=== PATIENT | female | born 1975 | race Two or more races ===

== ENCOUNTER 2018-12-14 19:07 | Emergency (ER) | payer OTHER ==
[2018-12-14] MEDS ORDERED: NORMAL SALINE 1000 ML 1,000 ML IV ONE (19:36)
--- NOTE | 2018-12-14 19:38 | ER Document Report ---
ED Medical Screen (RME) - General Chief Complaint: Abdominal Pain Stated Complaint: ABDOMINAL PAIN Time Seen by Provider: 12/14/18 19:36 Mode of Arrival: Wheelchair Information source: Patient Notes: Patient presents complaining of flank pain or abdominal pain that radiates to the suprapubic area for the past 6 days. Patient does report fever at home was 101 today. Patient reports nausea several days ago but none since then. Patient denies any significant medical history. Previous surgical history includes and tubal ligation. Patient does appear somewhat jaundiced in triage. I have greeted and performed a rapid initial assessment of this patient. A comprehensive ED assessment and evaluation of the patient, analysis of test results and completion of the medical decision making process will be conducted by additional ED providers. - Related Data Allergies/Adverse Reactions: hydrocodone Allergy (Verified 12/14/18 19:31) Past Medical History - Social History Frequency of alcohol use: None Drug Abuse: None Renal/ Medical History: Denies: Hx Peritoneal Dialysis Past Surgical History: Reports: Hx Section - x4, Hx Tubal Ligation Physical Exam - Vital signs Vitals: Temp Pulse Resp BP Pulse Ox 99.1 F 113 H 18 107/62 95 12/14/18 19:09 12/14/18 19:09 12/14/18 19:09 12/14/18 19:09 12/14/18 19:09 - Abdominal Inspection: Morbidly Obese Tenderness: Tender - Upper abdominal pain - Skin Skin Color: Jaundiced Course - Vital Signs Vital signs: Temp Pulse Resp BP Pulse Ox 99.1 F 113 H 18 107/62 95 12/14/18 19:09 12/14/18 19:09 12/14/18 19:09 12/14/18 19:09 12/14/18 19:09
[2018-12-14 20:53] LABS: APPEARANCE,URINE TURBID; BILIRUBIN,URINE NEGATIVE (NEGATIVE); GLUCOSE, URINE NEGATIVE (NEGATIVE); KETONES,URINE NEGATIVE (NEGATIVE); LEUKOCYTE ESTERASE,URINE MODERATE (NEGATIVE); NITRITE,URINE POSITIVE (NEGATIVE); PROTEIN,URINE >=500 mg/dL (NEGATIVE); URINE SPECIFIC GRAVITY 1.018
[2018-12-14 20:57] LABS: COLOR,URINE YELLOW
[2018-12-14 21:08] LABS: ABSOLUTE BASOPHILS # (AUTO) 0.1 10^3/uL (0.0-0.2); ABSOLUTE LYMPHOCYTES (AUTO) 0.7 10^3/uL (0.5-4.7); ABSOLUTE MONOCYTES (AUTO) 0.6 10^3/uL (0.1-1.4); ABSOLUTE NEUT (AUTO) 11.8 10^3/uL (1.7-8.2); BASOPHILS % (AUTO) 1.1 % (0-2); EOSINOPHILS % (AUTO) 0.1 % (0-6); HEMATOCRIT 29.2 % (36.0-47.0); HEMOGLOBIN 10.1 g/dL (12.0-15.5); LYMPHOCYTES % (AUTO) 5.1 % (13-45); MEAN CORPUSCULAR HEMOGLOBIN 34.2 pg (27.0-33.4); MEAN CORPUSCULAR HGB CONC 34.7 g/dL (32.0-36.0); MEAN CORPUSCULAR VOLUME 99 fl (80-97); MONOCYTES % (AUTO) 4.8 % (3-13); PLATELET COUNT 250 10^3/uL (150-450); RED BLOOD COUNT 2.96 10^6/uL (3.72-5.28); RED CELL DISTRIBUTION WIDTH 14.4 % (11.5-14.0); SEGMENTED NEUTROPHILS % (AUTO) 88.9 % (42-78); TOTAL CELLS COUNTED % (AUTO) 100 %; WHITE BLOOD COUNT 13.3 10^3/uL (4.0-10.5)
[2018-12-14 21:23] LABS: ALANINE AMINOTRANSFERASE 132 U/L (9-52); ALBUMIN 3.7 g/dL (3.5-5.0); ALKALINE PHOSPHATASE 260 U/L (38-126); ANION GAP 12 (5-19); ASPARTATE AMINO TRANSFERASE 98 U/L (14-36); BILIRUBIN,DIRECT 0.8 mg/dL (0.0-0.4); BILIRUBIN,TOTAL 1.3 mg/dL (0.2-1.3); BLOOD UREA NITROGEN 15 mg/dL (7-20); CALCIUM 9.4 mg/dL (8.4-10.2); CARBON DIOXIDE 25 mmol/L (22-30); CHLORIDE 102 mmol/L (98-107); GLUCOSE 96 mg/dL (75-110); LIPASE 21.4 U/L (23-300); POTASSIUM 3.4 mmol/L (3.6-5.0); SODIUM 139.4 mmol/L (137-145); TOTAL PROTEIN 7.1 g/dL (6.3-8.2)
[2018-12-14] MEDS ORDERED: ONDANSETRON HCL INJ/PF 4 MG/2 ML SDV IV ONE (21:55)
[2018-12-14] MEDS ORDERED: HYDROMORPHONE HCL INJ/PF 2 MG/ML AMPULE IV ONE (21:55)
[2018-12-14] MEDS ORDERED: CEFTRIAXONE 1 GM/D5W RTU 1 GM/50 ML RTUPB IV ONE (21:57)
--- NOTE | 2018-12-14 21:57 | ER Document Report ---
ED GI/ - General Chief Complaint: Abdominal Pain Stated Complaint: ABDOMINAL PAIN Time Seen by Provider: 12/14/18 19:36 Primary Care Provider: KHADIJAH LIVINGSTON MD [ACTIVE STAFF] - Follow up tomorrow Mode of Arrival: Wheelchair Notes: Patient is a 43-year-old female that comes to the emergency department for chief complaint of 6 days of worsening pain in her flank that radiates around to her abdomen and suprapubic area (she points) for the past 6 days. She states she has developed fever/chills, fever of 101 at home today. She reports nausea, denies vomiting. Denies history of kidney stones, however she does states she has had kidney infections before and this feels the same. Past medical history also includes , tubal ligation. No other reported medical history. - Related Data Allergies/Adverse Reactions: hydrocodone Allergy (Verified 12/14/18 19:31) Past Medical History - General Information source: Patient - Social History Smoking Status: Current Every Day Smoker Frequency of alcohol use: None Drug Abuse: None Lives with: Family Family History: Reviewed & Not Pertinent Patient has suicidal ideation: No Patient has homicidal ideation: No Renal/ Medical History: Denies: Hx Peritoneal Dialysis Past Surgical History: Reports: Hx Section - x4, Hx Tubal Ligation - Immunizations Hx Diphtheria, Pertussis, Tetanus Vaccination: Yes Review of Systems - Review of Systems Constitutional: No symptoms reported EENT: No symptoms reported Cardiovascular: No symptoms reported Respiratory: No symptoms reported Gastrointestinal: See HPI Genitourinary: See HPI Female Genitourinary: No symptoms reported Musculoskeletal: No symptoms reported Skin: No symptoms reported Hematologic/Lymphatic: No symptoms reported Neurological/Psychological: No symptoms reported Physical Exam - Vital signs Vitals: Temp Pulse Resp BP Pulse Ox 99.1 F 113 H 18 107/62 95 12/14/18 19:09 12/14/18 19:09 12/14/18 19:09 12/14/18 19:09 12/14/18 19:09 - Notes Notes: GENERAL: Alert, responsive, appears to be in pain HEAD: Normocephalic, atraumatic. EYES: Pupils equal, round, and reactive to light. Extraocular movements intact. ENT: Oral mucosa moist, tongue midline. Oropharynx unremarkable. Airway patent. Nares patent, no nasal septal hematoma, TM's intact. NECK: Full range of motion. Supple. Trachea midline. LUNGS: Clear to auscultation bilaterally, no wheezes, rales, or rhonchi. No respiratory distress. HEART: Borderline tachycardic, normal rhythm, no murmur. ABDOMEN: Mild generalized tenderness, nonspecific, no guarding, no rigidity GENITOURINARY: Deferred EXTREMITIES: Moves all 4 extremities spontaneously. No edema, normal radial and dorsalis pedis pulses bilaterally. No cyanosis. BACK: no cervical, thoracic, lumbar midline tenderness. No saddle anesthesia, normal distal neurovascular exam. There is some CVA tenderness bilaterally, worse on the right. NEUROLOGICAL: Alert and oriented x3. Normal speech. [cranial nerves II through XII grossly intact]. SKIN: Warm, dry, normal turgor. No rashes or lesions noted. Course - Re-evaluation Re-evalutation: On initial evaluation patient is very uncomfortable, she has bilateral CVA tenderness, she has some generalized abdominal tenderness without guarding of the abdomen. No fever here. After medication patient states she feels "high", but much better. She is still alert and responsive. She no longer appears to be in distress. CBC shows leukocytosis, some anemia, no bandemia. Chemistry shows creatinine at 1.7. I discussed this with patient, she was given additional IV fluids, she states she has never heard that she has poor renal functioning or chronic kidney disease. Ultrasound does not show hydronephrosis on the right side suggesting obstruction. Patient having slowly worsening symptoms consistent with pyelonephritis, no acute onset suggesting ureterolithiasis. She does have a urinary tract infection, culture was placed. Given antibiotics here. Ultrasound does show possible mass, possibly ovarian, otherwise unremarkable. Discussed with patient, she is requesting to leave. I discussed her labs in detail including her creatinine, her infection, my concerns about her ultrasound . She did agree to have an ultrasound performed, this was performed, shows a likely right ovarian mass which is very large. I called and spoke with Dr. Livingston, OUTSIDE SALES ACCOUNT MANAGER warehouse operations associate, she states that she does not suspect torsion because of the very large size, patient does not have any vomiting, she is very comfortable now. She recommends close OUTSIDE SALES ACCOUNT MANAGER follow-up in the office for this to be surgically taken care of. Patient states that she will absolutely perform this follow-up, she requests now to go home with her family, she states that she will have things rechecked, she will take her medications, and she will return if she worsens in any way. Blood pressure did become borderline low after pain medication but this is improved, she denies dizziness, ambulates without difficulty. She is also very small. She is not tachycardic or symptomatic, she has not had a fever here, as a result I do not suspect sepsis. She was however given strict return precautions and she states that she will return if she worsens in any way. - Vital Signs Vital signs: Temp Pulse Resp BP Pulse Ox 98.6 F 98 20 100/68 99 12/15/18 04:01 12/15/18 04:01 12/15/18 04:01 12/15/18 04:01 12/15/18 04:01 - Laboratory Result Diagrams: 12/14/18 20:45 12/14/18 20:45 Laboratory results interpreted by me: 12/14/18 12/14/18 12/14/18 19:50 20:45 20:45 WBC 13.3 H RBC 2.96 L Hgb 10.1 L Hct 29.2 L MCV 99 H MCH 34.2 H RDW 14.4 H Seg Neutrophils % 88.9 H Lymphocytes % 5.1 L Absolute Neutrophils 11.8 H Potassium 3.4 L Creatinine 1.71 H Est GFR ( Amer) 40 L Est GFR (Non-Af Amer) 33 L Direct Bilirubin 0.8 H AST 98 H ALT 132 H Alkaline Phosphatase 260 H Lipase 21.4 L Carcinoembryonic Ag Urine Protein >=500 H Urine Blood MODERATE H Urine Nitrite POSITIVE H Urine Urobilinogen 4.0 H Ur Leukocyte Esterase MODERATE H 12/14/18 20:45 WBC RBC Hgb Hct MCV MCH RDW Seg Neutrophils % Lymphocytes % Absolute Neutrophils Potassium Creatinine Est GFR ( Amer) Est GFR (Non-Af Amer) Direct Bilirubin AST ALT Alkaline Phosphatase Lipase Carcinoembryonic Ag 9.1 H Urine Protein Urine Blood Urine Nitrite Urine Urobilinogen Ur Leukocyte Esterase Discharge - Discharge Clinical Impression: Flank pain, Pelvic mass Abdominal pain Qualifiers: Abdominal location: generalized Qualified Code(s): R10.84 - Generalized abdominal pain Urinary tract infection Qualifiers: Urinary tract infection type: site unspecified Hematuria presence: without hematuria Qualified Code(s): N39.0 - Urinary tract infection, site not specified Condition: Stable Disposition: HOME, SELF-CARE Additional Instructions: Your evaluation is consistent with pyelonephritis, kidney infection. Take the antibiotic as prescribed to completion. If necessary take the pain and nausea medication as prescribed. Your ultrasound shows a large mass that appears to be coming from the right ovary, I spoke with Dr. Livingston (OUTSIDE SALES ACCOUNT MANAGER), she requests that you see her in the office at the referral so she can arrange for this to be removed. It is very important that this is performed so this does not cause additional problems or spread. Call tomorrow to set this up. Return if you worsen in any way including return if fevers, worsening pain, vomiting, or any other concerning or worsening symptoms. Prescriptions: Cephalexin Monohydrate [Keflex 500 mg Capsule] 500 mg PO QID #28 capsule Morphine Sulfate [Morphine Ir 15 Mg Tablet] 15 mg PO TID #12 tablet Ondansetron [Zofran Odt 4 mg Tablet] 1 - 2 tab PO Q4H PRN #15 tab.rapdis PRN Reason: For Nausea/Vomiting Forms: Treatment of Relative/Child Referrals: KHADIJAH LIVINGSTON MD [ACTIVE STAFF] - Follow up tomorrow
--- NOTE | 2018-12-15 00:21 | RADIOLOGY REPORT (SQ) ---
US ABDOMEN LIMITED HISTORY: Right upper quadrant pain. COMPARISON: None. TECHNIQUE: Grayscale and color Doppler imaging of the right upper quadrant was performed. FINDINGS: The liver has normal echotexture without focal lesion identified. The main portal vein has normal hepatopetal flow. No shadowing gallstones are seen. No pericholecystic fluid or gallbladder wall thickening. The common bile duct is normal caliber. The pancreas is not well-visualized due to overlying bowel gas. No hydronephrosis or shadowing renal stones are identified. The right kidney is normal in size. The visualized portions of the IVC and aorta are patent. Partially visualized large complex septated cystic mass which may arise in the right adnexa, measuring 12.8 x 19.4 x 14.5 cm. IMPRESSION: Partially visualized large complex septated cystic mass which may arise in the right adnexa, measuring 12.8 x 19.4 x 14.5 cm. Recommend pelvic ultrasound or MRI for complete evaluation.
[2018-12-15] MEDS ORDERED: NORMAL SALINE 1000 ML 1,000 ML IV ONE (01:06)
[2018-12-15] MEDS ORDERED: MORPHINE SULFATE 10 MG/ML INJ IV ONE (01:56)
--- NOTE | 2018-12-15 02:37 | RADIOLOGY REPORT (SQ) ---
EXAM DESCRIPTION: US TRANSVAGINAL COMPLETED DATE/TME: 12/15/2018 01:05 CLINICAL HISTORY: 43 years Female, eval previous US abnormality Comparison: None. Technique: Transabdominal and transvaginal. LIMITATIONS: None. FINDINGS: Complex cystic mass measures 19 x 14 x 14 cm of the right adnexa and right lower abdomen. Small moderate free pelvic fluid. 5.2 x 1.8 x 2.6 cm right ovary, 9.2 cm uterus, an 0.4 cm thick endometrial stripe appear normal size, shape, echotexture, and vascularity. IMPRESSION: 19 cm complex cystic mass extends to the right ovarian fossa. An adjacent 5.2 cm right ovary appears unremarkable. Left ovary is not separately discerned. Different diagnosis includes ovarian and other neoplasm. If the mass involves the ovary, there is increased risk for ovarian torsion. Consider immediate Surgical referral and/or IV and oral contrast CT of the abdomen pelvis.
[2018-12-15 04:01] VITALS: BP 100/68
[2018-12-16 10:27] LABS: CANCER ANTIGEN (CA) 125 34.5 U/mL (0.0-38.1)
== END 2018-12-15 04:03 | disposition home or self-care (01) ==
LOC: ER 19:07
DX: R19.09 Other intra-abdominal and pelvic swelling, mass and lump (principal); N39.0 Urinary tract infection, site not specified; R10.84 Generalized abdominal pain; R10.817 Generalized abdominal tenderness; D72.829 Elevated white blood cell count, unspecified; D64.9 Anemia, unspecified; R50.9 Fever, unspecified; R11.0 Nausea; F17.200 Nicotine dependence, unspecified, uncomplicated; Z87.440 Personal history of urinary (tract) infections; Z98.51 Tubal ligation status; Z88.5 Allergy status to narcotic agent
CPT/HCPCS: 99284; 96361; 96375; 96365; 36415; 87086; 86301; 86304; 82378; 83690; 84703; 85025; 87088; 80053; 81001; 87186; 76705; 76830; 93976; J2270; J1170; J2405; J7030 ×2; J0696

== ENCOUNTER → 2019-04-05 | Outpatient (CLI) | payer MEDICAID ==
--- NOTE | 2019-04-05 19:56 | XCELERA REPORT ---
[address] [address] Transthoracic Echocardiogram Report Name: FABIOLA YEE Age: 43 yrs Gender: Female : 1975 Patient Status: Outpatient Patient Location: Study Date: 04/05/2019 11:21 AM Height: 58 in Weight: 176 lb BSA: 1.7 m2 Reason For Study: LOCALIZED EDEMA Ordering Physician: МАРИЯ LOZADA Performed By: Ernestine Amos Interpretation Summary Small posterior pericardial effusion. Aortic root normal size. Aortic valve normal 3 cusps, PPG 5mmHg, No LVOT gradient. No AR. MV is snormal, no MS, no MVP. no MR. LA normal size ELIZABET 18. LV normal thickness, no LVH. LVEF biplane 53% normal. No LV diastolic dysfunction by TDI. Except for mild IVS hypokinesis, no regional wall motion abnormality. No LV enlargement . RH is normal RV not enlarged, TAPSE is normal. TR is not imaged or sampled, unable to derive RVSP to r/o if pulm hypertension to assess edema. IL trace and physiological. No ASD by color doppler. MMode/2D Measurements & Calculations RVDd: 2.7 cm LVIDd: 4.5 cm FS: 37.3 % Ao root diam: 2.3 cm IVSd: 0.65 cm LVIDs: 2.8 cm EDV(Teich): Ao root area: LVPWd: 0.88 cm 92.5 ml ESV(Teich): 4.1 cm2 30.2 ml LA dimension: 3.1 cm EF(Teich): 67.4 % LVLd ap4: 7.3 cm SV(MOD-sp4): EDV(MOD-sp4): 28.0 ml 51.0 ml LVLs ap4: 6.3 cm ESV(MOD-sp4): 23.0 ml EF(MOD-sp4): 54.9 % Doppler Measurements & Calculations MV E max hung: MV dec time: Ao V2 max: LV V1 max P.7 cm/sec 0.15 sec 114.8 cm/sec 2.5 mmHg MV A max hung: Ao max P.3 mmHgLV V1 max: 47.4 cm/sec 79.7 cm/sec MV E/A: 1.3 PA V2 max: Pulm Sys Hung: 65.2 cm/sec 43.5 cm/sec PA max P.7 mmHg Pulm Berrios Hung: 37.9 cm/sec Pulm S/D: 1.1 : МАРИЯ LOZADA Andre
== END ==
LOC: SP 10:57
PROVIDERS: ATTEND Family Medicine
DX: R60.0 Localized edema (principal)
CPT/HCPCS: 93306

== ENCOUNTER → 2020-07-12 | Outpatient (CLI) | payer MEDICAID ==
--- NOTE | 2020-07-15 13:27 | WOMENS IMAGING REPORT ---
EXAM DESCRIPTION: 3D SCREENING MAMMO BILAT IMAGES COMPLETED DATE/TIME: 07/12/2020 1:36 pm REASON FOR STUDY: Z12.31 ENCOUNTER FOR SCREENING MAMMOGRAM FOR MALIGNANT NEOPLASM OF BREAST Z12.31 ENCNTR SCREEN MAMMOGRAM FOR MALIGNANT NEOPLASM OF MEIR COMPARISON: Baseline examination. EXAM PARAMETERS: Standard craniocaudal and mediolateral oblique views of each breast recorded using digital acquisition and breast tomosynthesis. Read with the assistance of CAD. .COUNT INCLUDES THE [facility] - [employer] Version 9.2 LIMITATIONS: None. FINDINGS: RIGHT BREAST MASSES: No suspicious masses. CALCIFICATIONS: No new or suspicious calcifications. ARCHITECTURAL DISTORTION: None. ASYMMETRY: Small asymmetry lateral breast, 10.4 cm from the nipple, mid depth. This finding is best seen on the RCC view. OTHER: No other significant findings. LEFT BREAST MASSES: No suspicious masses. CALCIFICATIONS: No new or suspicious calcifications. ARCHITECTURAL DISTORTION: None. ASYMMETRY: Small asymmetry mid breast, 7.8 cm from the nipple. This finding is best seen on the LML O view. OTHER: No other significant findings. IMPRESSION: 1. Small asymmetries Bilateral breast. 0 Incomplete: Needs Additional Imaging Evaluation and/or prior Mammograms for Comparison. BREAST DENSITY: b. There are scattered areas of fibroglandular density. BIRAD: ASSESSMENT: 0 Incomplete: Needs Additional Imaging Evaluation and/or prior Mammograms for C omparison. RECOMMENDATION: 1. Special view mammogram Bilateral breast: spot compression views and true lateral views. Ultrasound if needed. The patient will be contacted for additional imaging. COMMENT: The patient has been notified of the results by letter per SA requirements. Additional no tification policies are in place for contacting patient with suspicious or incomplete findings. Quality ID #[id number]: The [employer] recommends an annual screening mammogram for women aged 40 years or over. This facility utilizes a reminder system to ensure that all patients receive reminder letters, and/or direct phone calls for appointments. This includes reminders for routine scr eening mammograms, diagnostic mammograms, or other Breast Imaging Interventions when appropriate. Th is patient will be placed in the appropriate reminder system. TECHNICAL DOCUMENTATION: FINDING NUMBER: (1) ASSESSMENT: (1) JOB ID: [id number] 2010 [employer]- All Rights Reserved Reading location - IP/workstation name: [id number]
== END ==
LOC: WI 13:18
PROVIDERS: ATTEND Nurse Practitioner Family
DX: Z12.31 Encounter for screening mammogram for malignant neoplasm of breast (principal); N64.89 Other specified disorders of breast
CPT/HCPCS: 77063; 77067